=== PATIENT | female | born 1985 | race Caucasian/White ===

== ENCOUNTER 2018-02-22 07:13 | Inpatient (IN) | payer BC ==
[2018-02-23] VITALS (57 sets, daily range): BP systolic 95–133; BP diastolic 51–92; PULSE 60–108; TEMP 97.7–98.2
[2018-02-23] MEDS ORDERED: PRENATAL (07:30)
[2018-02-23] MEDS ORDERED: CALCIUM 600/VIT1 CAP (07:32)
[2018-02-23 08:18] LABS: HEMATOCRIT 37.2 % (37.0-47.0); HEMOGLOBIN 12.2 g/dl (12.5-16.0); MEAN CELL VOLUME 89 fl (80.0-100.0); MEAN CORPUSCULAR HEMOGLOBIN 29 pg (27.0-31.0); MEAN CORPUSCULAR HGB CONC 33 g/dl (33.0-37.0); MEAN PLATELET VOLUME 10.6 fl (7.4-10.4); PLATELET COUNT 246 K/mm3 (130-400); RED BLOOD COUNT 4.17 M/mm3 (4.10-5.30); REDCELL DISTRIBUTION WIDTH-CV 14.1 % (11.5-14.5)
[2018-02-23 08:51] LABS: BAND 13 % (0-10); LYMPHOCYTE 34 % (20.0-51.0); METAMYELOCYTE 1 % (0-0); NEUTROPHILS 44 % (42.0-75.2)
[2018-02-23 08:54] LABS: PLATELET ESTIMATE NORMAL (NORMAL)
[2018-02-24 05:03] VITALS: BP 112/68; PULSE 92; TEMP 98.3
[2018-02-24 08:10] VITALS: BP 96/57; PULSE 96; TEMP 97
[2018-02-24 11:50] VITALS: BP 101/61; PULSE 79; TEMP 97.5
[2018-02-24 16:40] VITALS: BP 110/65; PULSE 75; TEMP 98
[2018-02-24 20:45] VITALS: BP 105/67; PULSE 87; TEMP 97.3
[2018-02-25 07:28] VITALS: BP 111/75; PULSE 82
[2018-02-25] MEDS ORDERED: PERCOCET 325 MG1 TA2 PO (07:52)
[2018-02-25] MEDS ORDERED: IBU600 MG PO (07:52)
== END 2018-02-25 13:05 | disposition home or self-care (01) | DRG 794 ==
LOC: LDR 02-23 07:03 → OB 02-23 22:00
PROVIDERS: Obstetrics & Gynecology
PROC: 10D00Z1 Extraction of Products of Conception, Low, Open Approach (ICD-10-PCS; principal; 2018-02-23)
PROC: 3E033VJ Introduction of Other Hormone into Peripheral Vein, Percutaneous Approach (ICD-10-PCS; 2018-02-23)
DX: P08.1 Other heavy for gestational age newborn (principal); O76 Abnormality in fetal heart rate and rhythm complicating labor and delivery; P08.21 Post-term newborn; Z37.0 Single live birth
CPT/HCPCS: J0690; J1885; J2210; J2270; J2370; J2590; J7120

== ENCOUNTER → 2018-03-04 | Outpatient (CLI) | payer BC ==
[~2018-03-04] MED LIST: CALCIUM 600/VIT1 CAP; IBU600 MG PO; PERCOCET 325 MG1 TA2 PO; PRENATAL
== END ==
LOC: LAC 14:56
DX: Z39.1 Encounter for care and examination of lactating mother (principal); Z71.89 Other specified counseling

== ENCOUNTER → 2018-03-16 | Outpatient (CLI) | payer BC | LOC: LAC 10:25 | DX: Z39.1 Encounter for care and examination of lactating mother (principal); Z71.89 Other specified counseling ==

== ENCOUNTER → 2018-03-23 | Outpatient (CLI) | payer BC | LOC: LAC 09:54 | DX: Z39.1 Encounter for care and examination of lactating mother (principal); Z71.89 Other specified counseling ==

== ENCOUNTER → 2018-08-10 | Outpatient (CLI) | payer BC ==
--- NOTE | 2018-08-10 13:03 | NUR ---
Pt, Constanza Benjamin (Alejandra), presents to walk-in clinic with 5 month old baby girl, Ursula Yoon, for a evaluation. She is returning to work soon and wants to do a pre and post feed weight to determine approximate bottle sizes. Ursula was born on [birth year] and weighed 9#14.7oz. They were seen in clinic in the early weeks and have been independantly since then. Today Ursula weighes 18#6.2oz. She nurses and has a weight gain of 5.6oz. Pt is concerned because at Ursula's 4 month appt (06/25/18) she weighed 8.2 Kg. Today's weight is 8.34 Kg, so she has gained an estimated 5oz in the last 6 weeks. Pt reports starting some bananas and sweet potatoes to Ursula's diet after 4 months, but discontinued them because it made her have more BM's and pt thought she was not gaining weight as well. LC advised pt to speak to baby's physician about her weight, encouraged to add solids back in but continue as many times daily, add the solids after ; she had replaced a couple breastfeedings with the solids she was taking. Also discussed the solids provided more fiber in baby's diet and would change her BMs. Pt verbaizes understanding, questions invited and answered.
== END ==
LOC: LAC 10:53
DX: Z39.1 Encounter for care and examination of lactating mother (principal); Z71.89 Other specified counseling

== ENCOUNTER 2020-01-26 05:27 | Inpatient (IN) | payer BC ==
[~2020-01-26] VITALS: Ht 157.5 cm; Wt 99.5 kg
[2020-01-26] VITALS (18 sets, daily range): BP systolic 104–118; BP diastolic 57–84; PULSE 65–107; TEMP 97.2–98.2
--- NOTE | 2020-01-26 05:30 | NUR ---
Patient ambulatory to room 209 for scheduled repeat . EFMs explained and applied. VSS. Consents signed. Plan of care reviewed.
[2020-01-26 06:03] LABS: BASO % 0.2 % (0.0-2.0); EOS # 0.1 (0.0-0.7); EOS % 0.9 % (0-4.0); GRAN # 5.5 (1.4-6.5); GRAN % 63.7 % (42.2-75.2); HEMATOCRIT 39.4 % (37.0-47.0); HEMOGLOBIN 13.1 g/dl (12.5-16.0); LYMPH # 2.5 (1.2-3.4); LYMPH % 29.1 % (20.0-51.0); MEAN CELL VOLUME 87 fl (80.0-100.0); MEAN CORPUSCULAR HEMOGLOBIN 29 pg (27.0-31.0); MEAN CORPUSCULAR HGB CONC 33 g/dl (33.0-37.0); MEAN PLATELET VOLUME 10.1 fl (7.4-10.4); MONO # 0.4 (0.1-0.6); MONO % 5.1 % (1.7-9.3); PLATELET COUNT 259 K/mm3 (130-400); RED BLOOD COUNT 4.55 M/mm3 (4.10-5.30); REDCELL DISTRIBUTION WIDTH-CV 14.2 % (11.5-14.5)
[2020-01-26] MEDS ORDERED: PRENATAL TABLET PO (06:29)
[2020-01-26] MEDS ORDERED: CALTRATE-600 W600 MG PO (06:30)
--- NOTE | 2020-01-26 15:30 | NUR ---
MOTHER FINISHES BREAST FEEDING AND CALLS OUT. THIS NURSE ASSISTS MOTHER UP TO BATHROOM. COLEMAN REMOVED. MOTHER NOT ABLE TO VOID AT THIS TIME. ENCOURAGED TO DRINK WATER AND TRY AGAIN IN 2 HOURS. MOTHER REPORTS SOME DIZZINESS WITH AMBULATION SO INSTRUCTED TO CALL OUT FOR ASSISTANCE UP. DRESSING HAS BEEN NOTED WITH SOME SHADOWING SINCE . NO FURTHER SHADOWING SINCE THIS NURSE TOOK OVER AT 1130. DRESSING REINFORCED WITH ADDITIONAL TAPE AT THIS TIME DUE TO LOOSTENED TAPE ON PATIENTS RIGHT SIDE. PATIENT TOLERATED WELL.
[2020-01-27 00:45] VITALS: BP 117/74; PULSE 84; TEMP 97.7
[2020-01-27 07:10] VITALS: BP 105/59; PULSE 82; TEMP 97.8
[2020-01-27] MEDS ORDERED: PERCOCET 325 MG1 TA2 PO (09:50)
[2020-01-27] MEDS ORDERED: IBU800 M1 PO (09:50)
[2020-01-27 17:00] VITALS: BP 110/60; PULSE 80; TEMP 98
[2020-01-27 19:00] VITALS: BP 107/70; PULSE 86; TEMP 97.9
[2020-01-27 23:50] VITALS: BP 122/73; PULSE 92; TEMP 97.8
[2020-01-28 04:09] VITALS: BP 113/66; PULSE 85; TEMP 97.7
[2020-01-28 08:20] VITALS: BP 125/69; PULSE 97; TEMP 97.4
== END 2020-01-28 12:05 | disposition home or self-care (01) | DRG 788 ==
LOC: OB 05:27
PROVIDERS: ADMIT Obstetrics & Gynecology
PROC: 10D00Z1 Extraction of Products of Conception, Low, Open Approach (ICD-10-PCS; principal; 2020-01-26)
DX: O34.211 Maternal care for low transverse scar from previous cesarean delivery (principal); O99.214 Obesity complicating childbirth; E66.9 Obesity, unspecified; Z3A.39 39 weeks gestation of pregnancy; Z37.0 Single live birth
CPT/HCPCS: J0690; J1885; J2370; J2405; J2590; J7120